=== PATIENT | female | born 2005 | race Caucasian/White ===

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

== ENCOUNTER 2024-05-23 11:27 | Outpatient (CLI) | payer BC, OTHER ==
[2024-05-23] MEDS: ACETAMINOPHEN TAB 325 MG TAB PO STA (12:35)
[2024-05-23 13:15] VITALS: BP 119/67; PULSE 75; RESP 16; TEMP 98.1
--- NOTE | 2024-05-28 20:50 | P.MSEPDOC ---
Presenting Problems - Arrival Data Date of Arrival on Unit: 05/23/24 Time of Arrival on Unit: 11:27 Mode of Transport: Ambulatory - Complaint OB-Reason for Admission/Chief Complaint: Other Comment: patient arrived c/o varicose veins and lower abd cramping Medical History - Information : 2 Para: 1 Term: 1 : 0 Abortions: Spontaneous or Elective: 0 Number of Living Children: 1 - Gestational Age Gestational Age by MARTÍNEZ (wks/days): 27 Weeks and 3 Days Review of Systems - Review of Systems Constitutional: No problems Breast: No problems ENT: No problems Cardiovascular: No problems Respiratory: No problems Gastrointestinal: No problems Genitourinary: No problems Musculoskeletal: No problems Neurological: No problems Skin: No problems Comment: light purplish pinkish bloted colors noted on legs from ankle to upper thigh area. legs cool to touch no warmth pain or discomfort or swelling noted. reflexes good and pt moving legs freely' lower abd soft to touch and pt denies any bleeding Vital Signs - Temperature Temperature: 98.1 F Temperature Source: Oral - Pulse Right Brachial Pulse Rate: 75 - Respirations Respiratory Rate: 16 Oxygen Delivery Method: Room Air O2 Sat by Pulse Oximetry: 99 - Blood Pressure Right Arm Blood Pressure: 119/67 Blood Pressure Mean: 84 Blood Pressure Source: Automatic Cuff Medical Screen Scoring - Uterine Contractions Resting: Soft to palpation - Assessment - Baby A Baseline FHR: 130 Heart Rate - NICHD Category: Category I (Normal) Physician Notification - Physician Notified Physician Notified Date: 05/23/24 Physician Notified Time: 11:49 Physician: India Regalado Order Received: Yes - Notification Comment Comment: may give 650 mg of tylenol and send patient home with instructions Maternal Triage Index - Non-Urgent/Priority 4 Non-Urgent Priority 4: Yes Criteria Met for Priority 4: 27 3/7 weeks arrived to unit c/o varicose veins and lower abd cramping. denies anyleaking of fluid or bleeding. Disposition - Disposition OB Disposition: Discharge to home Discharge Date: 05/23/24 Discharge Time: 12:43 I agree with the RN Medical Screening Exam: Yes Physician's MSE Comment: I have neither seen nor examined the patient Case reviewed; plan agreed upon as documented in EMR&OBIX.: Yes Diagnosis: FALSE LABOR, UNSPECIFIED
== END 2024-05-23 12:43 | disposition home or self-care (01) ==
LOC: FBPOP 11:27
PROVIDERS: ATTEND Obstetrics & Gynecology
CPT/HCPCS: 99213

== ENCOUNTER 2024-06-21 09:02 | Outpatient (CLI) | payer BC, OTHER ==
[2024-06-21] MEDS: DIPH,PERTUS(ACELL)TETVAC-LF 0.5 ML VIAL IM ONE (09:59)
[2024-06-21 10:05] LABS: Basophils % (A) 0 %; Eosinophils % (A) 1 %; HCT 30.4 % (34.0-46.0); HGB 9.6 gm/dL (11.4-16.0); Hypochromasia Slight; Lymphocytes # (A) 1.7 k/uL (1.0-4.8); Lymphocytes % (A) 20 %; MCH 27.3 pg (25.0-35.0); MCHC 31.6 g/dL (31.0-37.0); MCV 86.2 fL (80.0-100.0); Mean Platelet Volume 8.3; Monocytes # (A) 0.6 k/uL (0-1.0); Monocytes % (A) 8 %; Neutrophils # (A) 5.6 k/uL (1.3-7.7); Neutrophils % (A) 69 %; Platelet Count 309 k/uL (150-450); RBC 3.53 m/uL (3.80-5.40); RDW 13.4 % (11.5-15.5); WBC 8.1 k/uL (4.0-11.0)
[2024-06-21 12:09] VITALS: BP 119/65; PULSE 77; RESP 16; TEMP 97.9
[2024-06-21 15:48] LABS: Hepatitis B Surface Antigen Nonreactive (Nonreactive)
[2024-06-22 04:55] LABS: HIV 2 AB Non-Reactive (Non-Reactive); HIV AB P24 Non-Reactive (Non-Reactive); HIV P24 AG Non-Reactive (Non-Reactive)
== END 2024-06-21 11:36 | disposition home or self-care (01) ==
LOC: FBPOP 09:02
PROVIDERS: ATTEND Obstetrics & Gynecology
DX: Z34.93 Encounter for supervision of normal pregnancy, unspecified, third trimester (principal); F40.231 Fear of injections and transfusions; Z3A.31 31 weeks gestation of pregnancy
CPT/HCPCS: 36415; 59025; 82947; 82950; 85025; 86762; 86780; 86803; 87340; 87390; 90471; 90715

== ENCOUNTER 2024-08-18 23:07 | Inpatient (IN) | payer BC, OTHER ==
[2024-08-18] MEDS: METHYLERGONOVINE 0.2 MG/ML 1 ML AMP IM PRN (23:48)
[2024-08-18] MEDS: OXYTOCIN 10 UNIT/ML 1 ML VIAL IM PRN (23:48)
[2024-08-19] MEDS: LIDOCAINE 0.5% (PF) 5 MG/ML (50 ML SDV) SQ PRN (00:05)
[2024-08-19] MEDS ORDERED: CARBOPROST TROMETHAMINE 250 MCG/ML 1 ML AMP IM PRN (00:06)
[2024-08-19] MEDS ORDERED: TRANEXAMIC 1,000 MG/100ML-NACL 1,000 MG in EMPTY BAG 1 BAG IV PRN (00:06)
[2024-08-19] MEDS ORDERED: miSOPROStoL 200 MCG TAB RECTAL PRN (00:06)
[2024-08-19] MEDS ORDERED: TERBUTALINE 1 MG/ML VIAL SQ PRN (00:06)
[2024-08-19] MEDS ORDERED: miSOPROStoL 200 MCG TAB PO PRN (00:06)
--- NOTE | 2024-08-19 00:07 | P.HPOB ---
History of Present Illness H&P Date: 08/19/24 Chief Complaint: labor 18 year old presents at 40 weeks complaining of contractions. She was completely dilated in triage. heart tones category 1. Review of Systems All systems: negative Constitutional: Denies chills, Denies fever Eyes: denies blurred vision, denies pain Ears, nose, mouth and throat: Denies headache, Denies sore throat Cardiovascular: Denies chest pain, Denies shortness of breath Respiratory: Denies cough Gastrointestinal: Denies abdominal pain, Denies diarrhea, Denies nausea, Denies vomiting Genitourinary: Denies dysuria, Denies hematuria Musculoskeletal: Denies myalgias Integumentary: Denies pruritus, Denies rash Neurological: Denies numbness, Denies weakness Psychiatric: Denies anxiety, Denies depression Endocrine: Denies fatigue, Denies weight change Past Medical History Past Medical History: No Reported History History of Any Multi-Drug Resistant Organisms: None Reported Past Surgical History: No Surgical Hx Reported Past Anesthesia/Blood Transfusion Reactions: No Reported Reaction Smoking Status: Never smoker Medications and Allergies Home Medications Medication Instructions Recorded Confirmed Type Vit No.179/Iron/Folic 1 each PO DAILY 11/18/22 08/18/24 History [ Tablet] Allergies Allergy/AdvReac Type Severity Reaction Status Date / Time No Known Allergies Allergy Verified 06/21/24 09:15 Exam Osteopathic Statement: *. No significant issues noted on an osteopathic structural exam other than those noted in the History and Physical/Consult. Intake and Output 08/18/24 08/18/24 08/19/24 14:59 22:59 06:59 Other: Weight 81.647 kg Heart: Regular rate and rhythm Lungs: Clear to auscultation bilaterally Abdomen: Soft, nontender Extremities: Negative Homans sign Assessment and Plan (1) 40 weeks gestation of Current Visit: Yes Status: Acute Code(s): Z3A.40 - 40 WEEKS GESTATION OF SNOMED Code(s): 24746711 (2) Active labor at term Current Visit: No Status: Acute Code(s): PUK9352 - SNOMED Code(s): 35280315 Plan: 1. admit to [facility] 2. expectant management 3. anticipate normal vaginal delivery.
[2024-08-19] MEDS ORDERED: LANOLIN CREAM 1 GM TUBE TOPICAL PRN (00:08)
[2024-08-19] MEDS ORDERED: diphenhydrAMINE 50 MG CAP PO PRN (00:08)
[2024-08-19] MEDS ORDERED: ZOLPIDEM 5 MG TAB PO PRN (00:08)
[2024-08-19] MEDS ORDERED: diphenhydrAMINE 25 MG CAP PO PRN (00:08)
[2024-08-19] MEDS ORDERED: HYDROCORTISONE 2.5% RECTAL CREAM 30 GM TUBE RECTAL PRN (00:08)
[2024-08-19] MEDS ORDERED: diphenhydrAMINE 50 MG/ML 1 ML VIAL IVP PRN ×2 (00:08)
[2024-08-19] MEDS ORDERED: SIMETHICONE 80 MG CHEWABLE PO PRN (00:08)
--- NOTE | 2024-08-19 00:15 | P.PROBDLV ---
Vaginal Delivery Note - . Vaginal Delivery Note: 18-year-old presents at 40 weeks gestation in active labor. Her cervix is completely dilated when she presented to triage and she was admitted to [facility] into a room. On the way to the room her water broke. She pushed and delivered a viable male at 2344 over intact perineum under the nurses guidance. I came in soon thereafter and delivered the placenta at 2348 intact with three-vessel cord. She started having some bleeding and did not have an IV yet so IM Pitocin was given and uterine massage was done. I found some bleeding near the clitoris. I infiltrated this with 1% lidocaine and put in a [id number] stitch. The patient continued to have some bogginess and bleeding so a dose of IM Methergine was also given. The started to firm up her uterus nicely. The quantitative blood loss was 1700 mL and the patient did have some hypotension 70s over 50s. Pulse 102. We started an IV and gave her some fluids while I ordered a unit of packed red blood cells. Mother and baby in stable condition with her blood pressure now 120/63.
[2024-08-19 00:33] LABS: Basophils % (A) 0 %; Eosinophils % (A) 0 %; HCT 34.2 % (34.0-46.0); HGB 11.2 gm/dL (11.4-16.0); Lymphocytes % (A) 13 %; MCH 26.8 pg (25.0-35.0); MCHC 32.7 g/dL (31.0-37.0); MCV 81.8 fL (80.0-100.0); Mean Platelet Volume 8.9; Monocytes # (A) 0.7 k/uL (0-1.0); Monocytes % (A) 5 %; Neutrophils # (A) 12.3 k/uL (1.3-7.7); Neutrophils % (A) 81 %; Platelet Count 265 k/uL (150-450); RBC 4.18 m/uL (3.80-5.40); WBC 15.2 k/uL (4.0-11.0)
[2024-08-19] MEDS: LACTATED RINGERS 1,000 ML IV SCH (00:36)
[2024-08-19] MEDS: OXYTOCIN 30 UNITS/500 ML NS 30 UNIT in SALINE 1 500ML.BAG IV SCH (00:37)
[2024-08-19] MEDS: BENZOCAINE/MENTHOL SPRAY 1 GM/SPRAY AEROSOL TOPICAL PRN (00:38)
--- NOTE | 2024-08-19 08:29 | P.PNOBGVD ---
Subjective - Subjective Principal diagnosis: s/p vaginal delivery Interval history: The patient is doing well this morning and had no acute events overnight. She has no complaints this morning. She reports minimal lochia, passing flatus, voiding without difficulty, ambulating, and eating/drinking without nausea or vomiting. She is her without difficulty. She denies chest pain, shortness of breathing, fevers, or chills overnight. She denies pain or swelling in the legs. Patient reports: Reports appetite normal, Reports voiding normally, Reports pain well controlled, Reports ambulating normally : doing well Objective - Latest Vital Signs Latest vital signs: Vital Signs Temp Pulse Pulse Resp BP BP Pulse Ox 08/19/24 05:20 96.7 F L 70 16 110/58 100 08/19/24 05:08 97 16 110/55 100 08/19/24 04:41 71 16 108/59 100 08/19/24 04:28 85 16 107/55 08/19/24 04:11 76 16 103/57 100 08/19/24 03:56 81 16 105/57 100 08/19/24 03:42 97.0 F L 86 16 119/66 08/19/24 03:26 80 16 118/66 100 08/19/24 03:12 83 16 113/63 100 08/19/24 03:01 97.4 F L 91 16 111/65 08/19/24 02:52 96.9 F L 84 16 117/61 98 08/19/24 02:03 91 16 127/69 08/19/24 01:48 86 16 122/68 100 08/19/24 01:33 85 16 132/76 08/19/24 01:18 81 16 130/77 08/19/24 01:03 86 16 125/71 08/19/24 00:50 97.8 F 88 18 132/64 08/19/24 00:48 78 16 136/74 100 08/19/24 00:33 76 16 131/74 100 08/19/24 00:18 84 16 119/70 99 08/19/24 00:08 97.8 F 85 18 125/63 08/19/24 00:03 97.7 F 84 20 79/53 94 L 08/18/24 23:10 96.6 F L 88 18 137/81 98 Intake and Output 12/08/19/24 08/19/24 22:59 06:59 14:59 Intake Total 292 Output Total 2357 Balance -2064 Intake: Blood Product 292 Rc Pheresis As-3 Unit 292 [id number] Output: Output, Quantitative 2357 Blood Loss Other: # Voids 1 Weight 81.647 kg - Exam Extremities: Present: normal Abdomen: Present: normal appearance, soft Uterus: Present: normal, firm - Labs Labs: Abnormal Lab Results - Last 24 Hours (Table) 08/19/24 08/19/24 Range/Units 00:11 00:15 WBC 15.2 H (4.0-11.0) k/uL Hgb 11.2 L (11.4-16.0) gm/dL RDW 16.0 H (11.5-15.5) % Neutrophils # 12.3 H (1.3-7.7) k/uL Crossmatch See Detail Assessment and Plan Assessment: 18 year old now PPD#0 s/p vaginal delivery complicated by hemorrhage Plan: 1. . Patient meeting milestones appropriately. 2. Acute blood loss of 1700 mL. Vital signs stable. Patient asymptomatic. CBC pending for the morning, patient has needle phobia and may require nitrous oxide. 3. Viable male at the bedside. Bottle feeding, doing well, needs circumcision tomorrow prior to discharge. Dispo: Anticipate discharge home tomorrow.
[2024-08-19] MEDS: SENNOSIDES-DOCUSATE SODIUM 1 EACH TAB PO SCH (08:39)
[2024-08-19 09:02] LABS: Anisocytosis Slight; Basophils # (A) 0.1 k/uL (0-0.2); Basophils % (A) 0 %; Eosinophils # (A) 0.2 k/uL (0-0.7); Eosinophils % (A) 1 %; HCT 34.2 % (34.0-46.0); HGB 11.2 gm/dL (11.4-16.0); Lymphocytes # (A) 2.3 k/uL (1.0-4.8); Lymphocytes % (A) 11 %; MCH 26.9 pg (25.0-35.0); MCHC 32.8 g/dL (31.0-37.0); MCV 81.9 fL (80.0-100.0); Mean Platelet Volume 8.5; Monocytes # (A) 1.3 k/uL (0-1.0); Monocytes % (A) 7 %; Neutrophils # (A) 15.8 k/uL (1.3-7.7); Neutrophils % (A) 79 %; Platelet Count 261 k/uL (150-450); RBC 4.17 m/uL (3.80-5.40); RDW 16.6 % (11.5-15.5); WBC 19.9 k/uL (4.0-11.0)
[2024-08-19] MEDS: ACETAMINOPHEN TAB 500 MG TAB PO PRN (11:30)
[2024-08-19] MEDS: IBUPROFEN 800 MG TAB PO PRN (16:05)
--- NOTE | 2024-08-20 08:47 | P.PNOBGVD ---
Subjective - Subjective Principal diagnosis: s/p Interval history: The patient is doing well this morning and had no acute events overnight. She has no complaints this morning. She reports minimal lochia, passing flatus, voiding without difficulty, ambulating, and eating/drinking without nausea or vomiting. She is breast feeding her without difficulty. She denies chest pain, shortness of breathing, fevers, or chills overnight. She denies pain or swelling in the legs. Patient reports: Reports appetite normal, Reports voiding normally, Reports pain well controlled, Reports ambulating normally : doing well, nursing well Objective - Latest Vital Signs Latest vital signs: Vital Signs Temp Pulse Resp BP Pulse Ox 08/20/24 00:00 98 F 70 18 115/68 98 08/19/24 16:00 98.1 F 72 16 115/68 - Exam Extremities: Present: normal Abdomen: Present: normal appearance, soft Uterus: Present: normal, firm - Labs Labs: Abnormal Lab Results - Last 24 Hours (Table) 08/19/24 Range/Units 08:42 WBC 19.9 H (4.0-11.0) k/uL Hgb 11.2 L (11.4-16.0) gm/dL RDW 16.6 H (11.5-15.5) % Neutrophils # 15.8 H (1.3-7.7) k/uL Monocytes # 1.3 H (0-1.0) k/uL Assessment and Plan Assessment: 18 year old now PPD#1 s/p vaginal delivery complicated by hemorrhage Plan: 1. . Patient meeting milestones appropriately. 2. Acute blood loss of 1700 mL. Vital signs stable. Hgb stable. 3. Viable male at the bedside. Bottle feeding, doing well, needs circumcision tomorrow prior to discharge. Dispo: Anticipate discharge home tomorrow once 48-hour hold on baby is complete for untreataed GBS.
--- NOTE | 2024-08-21 08:31 | P.DS ---
Providers Date of admission: 08/18/24 23:37 Expected date of discharge: 08/21/24 Attending physician: India Regalado MD Primary care physician: Stated None Hospital Course: Ms. Arriaga is a 18 year old now PPD#2 s/p . Her delivery was complicated by a 1700 mL hemorrhage during which time she received 1 unit pRBCs. Her hemoglobin was stable thereafter and she was asymptomatic. Her course was otherwise uncomplicated. The patient is doing well this morning and had no acute events overnight. She has no complaints this morning. She reports minimal lochia, passing flatus, voiding without difficulty, ambulating, and eating/drinking without nausea or vomiting. doing well at bedside, s/p circumcision. She denies chest pain, shortness of breathing, fevers, or chills overnight. She denies pain or swelling in the legs. restrictions are reviewed with the patient including pelvic rest for 6 weeks. The patient is encouraged to call the office if she experiences any heavy bleeding, foul-smelling discharge, breast complaints, or any if she has any other concerns. She will follow up in the office with in 6 weeks for postoperative exam. She will use OTC Motrin and Tylenol as needed for pain. All questions are answered. Assessment: 18 year old now PPD#2 s/p complicated by PPH Patient Condition at Discharge: Good Plan - Discharge Summary New Discharge Prescriptions: No Action Vit No.179/Iron/Folic [ Tablet] 1 each PO DAILY Discharge Medication List Vit No.179/Iron/Folic [ Tablet] 1 each PO DAILY 11/18/22 [History] Follow up Appointment(s)/Referral(s): India Regalado MD [STAFF PHYSICIAN] - 09/30/24 1:30 pm Activity/Diet/Wound Care/Special Instructions: Instructions 1. Do not begin any exercise program for 3 weeks. 2. Do not resume sexual relations for 6 weeks or longer if uncomfortable. 3. You may take tub baths or showers at any time. 4. You may use tampons if desired after 6 weeks. 5. Keep any areas repaired with stitches clean and dry. 6. If you are not nursing, wear a good fitting, supportive bra during the day and limit fluid intake for at least 1 week to prevent breast engorgement. 7. Call the office, , within the next week to make appointment for your 6 week checkup if it has not already been made. 8. Report any of the following occurrences to the doctor promptly: a. Heavy, excessive bleeding b. Chills, fever c. Burning or frequency of urination d. Pain or redness and breasts if nursing e. Increasing pain or swelling of vulva (stitches). In addition to the above instructions, the following additional should be followed: 1. No heavy lifting or straining (exercising) until after 6 week checkup. 2. Keep abdominal incision clean and dry: You may wear a dressing if more comfortable. 3. Make office appointment for 2 weeks after delivery date. Discharge Disposition: HOME SELF-CARE
[2024-08-21 16:48] VITALS: BP 116/72; PULSE 68; RESP 16; TEMP 98.2
== END 2024-08-21 17:50 | disposition home or self-care (01) | DRG 806 ==
LOC: FBPOP 23:07 → 4FBP 23:37
PROVIDERS: ADMIT Obstetrics & Gynecology; ATTEND Obstetrics & Gynecology
PROC: 10E0XZZ Delivery of Products of Conception, External Approach (ICD-10-PCS; principal; 2024-08-19)
PROC: 30233N1 Transfusion of Nonautologous Red Blood Cells into Peripheral Vein, Percutaneous Approach (ICD-10-PCS; 2024-08-19)
DX: O72.1 Other immediate postpartum hemorrhage (principal); D62 Acute posthemorrhagic anemia; Z37.0 Single live birth; I95.9 Hypotension, unspecified; O99.02 Anemia complicating childbirth; Z3A.40 40 weeks gestation of pregnancy; Z28.310 Unvaccinated for COVID-19
CPT/HCPCS: 85025; 86850; 86900; 86901; 86920; 88307; 99213